=== PATIENT | female | born 2000 | race Caucasian/White ===

== ENCOUNTER 2021-04-26 21:45 | Emergency (ER) | payer BC ==
[~2021-04-26] VITALS: Ht 165.1 cm; Wt 68.2 kg
[2021-04-26 23:51] VITALS: BP 125/68
[2021-04-27] MEDS ORDERED: RABIES VACCINE (PCEC)/PF 2.5 UNITS/ML SYRINGE IM. ONE (00:45)
[2021-04-27] MEDS ORDERED: HYDROGEN PEROXIDE 118 ML SOLUTION ONE (01:11)
== END 2021-04-27 01:32 | disposition home or self-care (01) ==
LOC: EMS 21:45
DX: Z23 Encounter for immunization (principal)
CPT/HCPCS: 90471; 90675; 99281